=== PATIENT | male | born 1950 | race Two or more races ===

== ENCOUNTER 2024-11-17 07:49 | Day surgery (SDC) | payer MEDICARE, OTHER ==
[2024-11-17] MEDS ORDERED: PROPOFOL 200 MG/20 ML BOTTLE ONE (10:00)
[2024-11-17 12:18] VITALS: TEMP 97.6
== END 2024-11-17 12:18 | disposition home or self-care (01) ==
LOC: DS 07:49
PROVIDERS: ATTEND Surgery
DX: K58.9 Irritable bowel syndrome, unspecified (principal); K92.1 Melena; K31.9 Disease of stomach and duodenum, unspecified; K44.9 Diaphragmatic hernia without obstruction or gangrene; K57.30 Diverticulosis of large intestine without perforation or abscess without bleeding; K25.9 Gastric ulcer, unspecified as acute or chronic, without hemorrhage or perforation; D64.9 Anemia, unspecified; R63.4 Abnormal weight loss; I10 Essential (primary) hypertension; I25.10 Atherosclerotic heart disease of native coronary artery without angina pectoris; E11.9 Type 2 diabetes mellitus without complications; E78.5 Hyperlipidemia, unspecified; E03.9 Hypothyroidism, unspecified; Z79.899 Other long term (current) drug therapy; Z98.890 Other specified postprocedural states; Z88.0 Allergy status to penicillin
CPT/HCPCS: 43239; 45380; 71045; 82962; 88305; 88312; 88313; J7040; A4663; J3490